=== PATIENT | male | born 1945 | race Two or more races ===

== ENCOUNTER 2023-12-14 15:54 | Emergency (ER) | payer OTHER ==
[~2023-12-14] VITALS: Ht 180.3 cm; Wt 83.5 kg
[2023-12-14] MEDS ORDERED: WELLBUTRIN XL300 MG PO (16:10)
[2023-12-14] MEDS ORDERED: ESTAZOLAM2 MG PO (16:10)
[2023-12-14] MEDS ORDERED: LOSARTAN POTASS50 MG PO (16:10)
[2023-12-14] MEDS ORDERED: TAMS0.4C PO (16:20)
[2023-12-14] MEDS ORDERED: RINGERS SOLUTION,LACTATED 1,000 ML IV STA (17:49)
[2023-12-14] MEDS ORDERED: CIPROFLOXACIN IN 5 % DEXTROSE 400 MG/200 ML PIGGYBAG IV STA (17:50)
[2023-12-14 18:18] LABS: URINE APPEARANCE Cloudy; URINE BILIRRUBIN Negative (NEGATIVE); URINE BLOOD Large; URINE COLOR Yellow; URINE GLUCOSE Negative (NEGATIVE); URINE KETONE Trace (NEGATIVE); URINE LEUKOCYTE Moderate; URINE NITRATE Negative; URINE UROBILINOGEN 0.2 E.U./dl
[2023-12-14 18:22] LABS: URINE BACTERIA 1794.1 uL (0.0-1933); URINE EPITHELIAL CELLS 14.3 uL (0.0-38.8); URINE RBC 2516.9 uL (0.0-20.8); URINE WBC 1008.5 uL (0.0-23.2)
[2023-12-14 18:33] LABS: URINE CAST 0.45 uL (0.0-1.40); URINE PROTEIN 100 (NEGATIVE)
[2023-12-14 18:42] LABS: MEAN CELL VOLUME 87.5 fL (80.0-100.00); MEAN CORPUSCULAR HEMOGLOBIN 29.7 pg (27.00-32.0); PLATELET COUNT 201 K/uL (150-450); RED BLOOD COUNT 5.03 M/uL (4.00-6.00); RED CELL DISTRIBUTION WIDTH 13.6 % (11.5-14.5)
[2023-12-14 19:14] LABS: ALBUMIN 3.9 gm/dL (3.4-5.0); BILIRUBIN TOTAL 0.72 mg/dL (0.3-1.2); CREATININE SERUM 1.33 mg/dL (0.70-1.30); GFR 52.14; GLOBULINA 3.5 G/DL (2.4-3.5); INR 1.04; PARTIAL THROMBOPLASTIN TIME 27.9 SECONDS (22.0-34.0); POTASSIUM 4.03 mEq/L (3.5-5.1); PROTHROMBIN TIME 11.3 SECONDS (9.0-11.5); TOTAL PROTEIN 7.4 gm/dL (6.4-8.2)
== END 2023-12-14 22:43 | disposition home or self-care (01) ==
LOC: ER 15:56
DX: R31.0 Gross hematuria (principal)
CPT/HCPCS: 36415; 74177; 96365; 99284; J0744; Q9965